=== PATIENT | female | born 1950 | race Caucasian/White ===

== ENCOUNTER → 2019-05-08 09:57 | Outpatient (CLI) | payer MEDICARE, OTHER, SELFPAY ==
--- NOTE | ~2019-05-08 | US_ITS ---
EXAMINATION: US breast LT limited HISTORY: Follow-up of benign left breast biopsy TECHNIQUE: Limited left breast ultrasound is performed. COMPARISON: 09/22/2018, 03/24/2018 FINDINGS: There is a stable 5 mm x 3 mm oval, circumscribed, parallel, hypoechoic mass with no nuclear radiation engineer ior features or internal vascularity at the 7:00 location 3 cm from the nipple. No additional sonogra phically detected masses identified. IMPRESSION: Given 12 months of sonographic stability, recommend follow-up targeted left breast ultrasound in 12 m [facility]. BI-RADS category 3, probably benign findings. Reviewed, dictated and finalized at location A. UNTS PAYABLE TECHNICIAN IMPRESSION: Given 12 months of sonographic stability, recommend follow-up targeted left nahomy ast ultrasound in 12 months. BI-RADS category 3, probably benign findings.
== END ==
PROVIDERS: PCP Internal Medicine; Visit Provider Obstetrics & Gynecology Gynecology
DX: R92.8 Other abnormal and inconclusive findings on diagnostic imaging of breast (principal)
CPT/HCPCS: 76642

== ENCOUNTER → 2019-11-30 10:59 | Outpatient (CLI) | payer MEDICARE, SELFPAY ==
--- NOTE | ~2019-11-30 | MM_ITS ---
EXAMINATION: MM screening [facility] BI w debra HISTORY: Screening mammogram TECHNIQUE: Craniocaudal and mediolateral oblique 3-D tomosynthesis images were obtained and synthetic 2-D images were generated. CAD analysis was submitted and interpreted. COMPARISON: 09/22/2018, 03/24/2018, 03/17/2018, 03/15/2017 BREAST PARENCHYMAL COMPOSITION: There are scattered areas of fibroglandular density. FINDINGS: A stable mass is present in the subareolar aspect of the left breast, considered benign giv en lack of interval change. The mammogram is also stable in the area of the interval left breast biop sy. There is no evidence of suspicious mass, calcification, or architectural distortion to suggest ma lignancy in either breast. There has been no suspicious interval change. IMPRESSION: 1. No mammographic evidence of malignancy. 2. Recommend routine screening mammography in one year. Of note, patient is due for charted left yaa st ultrasound in May 2020. BI-RADS Category 2: Benign finding(s). Reviewed, dictated and finalized at location A. IMPRESSION: 1. No mammographic evidence of malignancy. 2. Recommend routine screening mammography in one year. Of note, patient is due for charted left breast ultrasound in May 2020. BI-RADS Category 2: Benign finding(s).
== END ==
PROVIDERS: Visit Provider Obstetrics & Gynecology Gynecology
DX: Z12.31 Encounter for screening mammogram for malignant neoplasm of breast (principal)
CPT/HCPCS: 77063; 77067

== ENCOUNTER → 2020-08-19 09:44 | Outpatient (CLI) | payer MEDICARE, SELFPAY ==
--- NOTE | ~2020-08-19 | US_ITS ---
US breast LT limited 08/19/2020 10:07 Indication: Follow-up left breast mass Procedure: High-resolution ultrasound of the left breast Comparison: No prior studies for comparison. Findings: At 6:00, 4.5 cm from the nipple, there is an oval hypoechoic mass in measuring 6 mm with po sterior acoustic enhancement and no internal vascularity. There is parallel orientation with circumsc ribed margins. This likely corresponds to the mass seen on prior ultrasound at 7:00, 3 cm from the ni pple, allowing for differences of technique. Impression: 1: Stable probable benign left breast mass at 6:00, 4.5 cm from the nipple allowing for differences o f technique. BI-RADS CATEGORY 3-PROBABLY BENIGN FINDING RECOMMENDATION: Six-month follow-up bilateral screening mammogram and targeted left breast ultrasound recommended. Reviewed, dictated and finalized at location A. Impression: 1: Stable probable benign left breast mass at 6:00, 4.5 cm from the nipple allo wing for differences of technique. BI-RADS CATEGORY 3-PROBABLY BENIGN FINDING RECOMMENDATION: Six-month follow-up bilateral screening mammogram and targeted left breast ultrasound recommended.
== END ==
PROVIDERS: PCP Internal Medicine; Visit Provider Obstetrics & Gynecology Gynecology
DX: N63.25 Unspecified lump in the left breast, overlapping quadrants (principal)
CPT/HCPCS: 76642

== ENCOUNTER → 2020-12-02 13:15 | Outpatient (CLI) | payer MEDICARE, SELFPAY ==
--- NOTE | ~2020-12-02 | MM_ITS ---
EXAMINATION: MM screening jacques BI w debra HISTORY: Screening TECHNIQUE: Craniocaudal and mediolateral oblique 3-D tomosynthesis images were obtained and synthetic 2-D images were generated. CAD analysis was submitted and interpreted. COMPARISON: Comparison to multiple prior studies sequentially, with oldest reviewed study dated 03/05. BREAST PARENCHYMAL COMPOSITION: There are scattered areas of fibroglandular density. FINDINGS: Decreasing size of benign-appearing subareolar left breast mass. There is no evidence of bee spicious mass, calcification, or architectural distortion to suggest malignancy in either breast. The re has been no suspicious interval change. IMPRESSION: 1. No mammographic evidence of malignancy. 2. Recommend routine screening mammography in one year. BI-RADS Category 2: Benign finding(s). Reviewed, dictated and finalized at location A.
== END ==
PROVIDERS: PCP Internal Medicine; Visit Provider Obstetrics & Gynecology Gynecology
DX: Z12.31 Encounter for screening mammogram for malignant neoplasm of breast (principal)
CPT/HCPCS: 77063; 77067

== ENCOUNTER → 2021-01-07 12:16 | Outpatient (CLI) | payer MEDICARE, SELFPAY ==
--- NOTE | ~2021-01-07 | DEXA_ITS ---
Bone Density Report Name: Samara Noriega Age: 70 Sex: Female Ethnicity: White Date of : 1950 Indication: postmenopausal; screening for osteoporosis; parental hip fracture; hysterectomy; Referring Provider: ALEXUS BARRIOS Study: Bone densitometry was performed. Exam Date: January 07, 2021 Accession number: [id number] Bone Density: Region BMD T-score Z-score Classification AP Spine (L1-L4) 0.930 -1.1 1.1 Osteopenia Femoral Neck (Left) 0.649 -1.8 0.1 Osteopenia Total Hip (Left) 0.865 -0.6 1.0 Normal Femoral Neck (Right) 0.641 -1.9 0.0 Osteopenia Total Hip (Right) 0.808 -1.1 0.5 Osteopenia Total Hip Mean 0.837 -0.9 0.8 Normal World Health Organization criteria for BMD impression classify patients as: Normal (T-score at or above -1.0), Osteopenia (T-score between -1.0 and -2.5), or Osteoporosis (T-score at or below -2.5). 10-year Fracture Risk(1): Major Osteoporotic Fracture 18% Hip Fracture 5.5% Reported Risk Factors: [place] (), Neck BMD=0.641, BMI=28.9, parental fracture (1) FRAX(R) Version 3.08. Fracture probability calculated for an untreated patient. Fracture probability may be lower if the patient has received treatment. Previous Exams: Region Exam Age BMD T-score BMD Change BMD Change Date g/cm2 vs Baseline vs Previous AP Spine(L1-L4) 01/07/2021 70 0.930 -1.1 0.046* -0.046* 03/15/2017 66 0.976 -0.6 0.093* 0.008 03/05/2014 63 0.969 -0.7 0.085* 0.069* 03/01/2012 61 0.900 -1.3 0.016 0.004 02/21/2010 59 0.896 -1.4 0.012 0.003 02/08/2008 57 0.893 -1.4 0.009 0.009 11/19/2004 54 0.884 -1.5 Total Hip(Left) 01/07/2021 70 0.865 -0.6 -0.049* -0.083* 03/15/2017 66 0.948 0.0 0.034* 0.008 03/05/2014 63 0.940 0.0 0.026 0.044* 03/01/2012 61 0.897 -0.4 -0.018 0.005 02/21/2010 59 0.892 -0.4 -0.023 -0.032* 02/08/2008 57 0.924 -0.1 0.009 0.009 11/19/2004 54 0.914 -0.2 Total Hip(Right) 01/07/2021 70 0.808 -1.1 0.014 -0.041* 03/15/2017 66 0.848 -0.8 0.055* 0.012 03/05/2014 63 0.836 -0.9 0.043* 0.020 03/01/2012 61 0.816 -1.0 0.022 0.004 02/21/2010 59 0.812 -1.1 0.018 0.000 02/08/2008 57 0.812 -1.1 0.018 0.018 11/19/2004 54 0.794 -1.2
== END ==
PROVIDERS: PCP Internal Medicine; Visit Provider Obstetrics & Gynecology Gynecology
DX: Z78.0 Asymptomatic menopausal state (principal); M85.88 Other specified disorders of bone density and structure, other site; M85.851 Other specified disorders of bone density and structure, right thigh; M85.852 Other specified disorders of bone density and structure, left thigh
CPT/HCPCS: 77080

== ENCOUNTER → 2021-02-20 09:19 | Outpatient (CLI) | payer MEDICARE, SELFPAY ==
--- NOTE | ~2021-02-20 | US_ITS ---
US breast LT limited DATE: 02/20/2021 09:44 INDICATION: Six-month follow-up of probably benign left breast mass at 6:00 4.5 cm from nipple TECHNIQUE: Real-time imaging targeted at 6:00 4.5 cm from the nipple COMPARISON: left breast ultrasound 12/02/2020 screening FINDINGS: There is a benign parallel circumscribed hypoechoic solid lesion without posterior shadowin g at 6:00 4.5 cm from nipple, not significant change since 08/19/2020. IMPRESSION: BI-RADS Category 2: Benign Recommendation: Routine mammographic screening Reviewed, dictated and finalized at Location A. Reviewed, dictated and finalized at location A. SANDER
== END ==
PROVIDERS: PCP Internal Medicine; Visit Provider Obstetrics & Gynecology Gynecology
DX: N63.25 Unspecified lump in the left breast, overlapping quadrants (principal)
CPT/HCPCS: 76642

== ENCOUNTER → 2021-12-22 10:47 | Outpatient (CLI) | payer MEDICARE, SELFPAY ==
--- NOTE | ~2021-12-22 | MM_ITS ---
EXAMINATION: MM screening [facility] BI w debra HISTORY: Screening mammogram TECHNIQUE: Craniocaudal and mediolateral oblique 3-D tomosynthesis images were obtained and synthetic 2-D images were generated. CAD analysis was submitted and interpreted. COMPARISON: 12/02/2020, 11/30/2019, 09/22/2018 BREAST PARENCHYMAL COMPOSITION: There are scattered areas of fibroglandular density. FINDINGS: There is no suspicious mass, calcification, or architectural distortion to suggest malignan cy in either breast. There has been no suspicious interval change. IMPRESSION: 1. No mammographic evidence of malignancy. 2. Recommend routine screening mammography in one year. BI-RADS Category 1: Negative Reviewed, dictated and finalized at location A.
== END ==
PROVIDERS: PCP Internal Medicine; Visit Provider Obstetrics & Gynecology Gynecology
DX: Z12.31 Encounter for screening mammogram for malignant neoplasm of breast (principal)
CPT/HCPCS: 77063; 77067

== ENCOUNTER 2022-02-11 10:24 | Outpatient (CLI) | payer MEDICARE, SELFPAY ==
--- NOTE | 2022-02-11 10:42 | ECG_ITS ---
Measurements Intervals Wheeler Rate: 76 P: 55 HI: 189 QRS: -33 QRSD: 97 T: 69 QT: 383 QTc: 433 Interpretive Statements SINUS RHYTHM WITH SINUS ARRHYTHMIA LEFT AXIS DEVIATION LOW QRS VOLTAGE IN PRECORDIAL LEADS INCOMPLETE RIGHT BUNDLE BRANCH BLOCK LEFT VENTRICULAR HYPERTROPHY AND ST-T CHANGE BORDERLINE R WAVE PROGRESSION, ANTERIOR LEADS MINIMAL Q WAVES- HIGH LATERAL LEADS BORDERLINE ECG NO PREVIOUS ECG AVAILABLE FOR COMPARISON Electronically Signed On 02-11-2022 11:51:41 MACHINE JOINER CEMENTER by Chase Naik D.O.
[2022-02-11 11:47] LABS: Basophils Absolute Auto 0.1 K/mm3 (0.0-0.1); Basophils Percent Auto 0.6 % (0.2-1.2); Eosinophils Absolute Auto 0.1 K/mm3 (0-0.3); Hematocrit 44.1 % (37.0-47.0); Hemoglobin 14.4 g/dL (12.0-15.0); Immature Granulocyte Absolute 0.03 K/mm3 (0.00-0.031); Immature Granulocyte Percent A 0.4 % (0-0.5); Lymphocytes Absolute Auto 2.38 K/mm3 (0.9-3.2); Lymphocytes Percent Auto 28.7 % (18.3-44.2); Mean Corpuscular HGB Conc 32.7 g/dl (32-36); Mean Corpuscular Volume 88.7 fl (80-100); Mean Platelet Volume 10.1 fl (7.4-10.4); Monocytes Absolute Auto 0.6 K/mm3 (0.1-0.6); Monocytes Percent Auto 6.6 % (2.6-8.5); Neutrophils Absolute Auto 5.2 K/mm3 (1.3-6.7); Neutrophils Percent Auto 62.7 % (45.5-73.1); Platelet Count Result 277 k/mm3 (150-375); Red Blood Count 4.97 M/mm3 (4.2-5.4); Red Cell Distribution Width 13.8 % (11.5-14.5); White Blood Count 8.3 K/mm3 (4.5-10.0)
== END 2022-02-11 10:25 | disposition home or self-care (01) ==
PROVIDERS: PCP Internal Medicine; Visit Provider Nurse Practitioner Family
DX: M17.11 Unilateral primary osteoarthritis, right knee (principal); M25.562 Pain in left knee; I45.10 Unspecified right bundle-branch block
CPT/HCPCS: 36415; 85025; 93005

== ENCOUNTER 2022-03-05 12:08 | Outpatient (CLI) | payer MEDICARE, SELFPAY ==
[2022-03-05 15:11] LABS: Add Urine Microscopic? NO; Appearance Urine Clear (Clear); Bilirubin Urine Negative (Negative); Blood Urine Negative (Negative); Color Urine Yellow (Yellow); Glucose Urine UA Negative (Negative); Ketones Urine Negative (Negative); Leukocyte Esterase Ur Negative LEU/UL (Negative); Nitrate Urine Negative (Negative); Protein Urine Negative (Negative); Urobilinogen Urine 0.2 mg/dL (<2.0)
== END 2022-03-05 12:09 | disposition home or self-care (01) ==
PROVIDERS: PCP Internal Medicine; Visit Provider Nurse Practitioner Family
DX: G89.29 Other chronic pain (principal); M17.11 Unilateral primary osteoarthritis, right knee; M17.12 Unilateral primary osteoarthritis, left knee; M25.562 Pain in left knee; M25.561 Pain in right knee
CPT/HCPCS: 81003

== ENCOUNTER 2022-04-03 10:00 | Outpatient (CLI) | payer MEDICARE, SELFPAY ==
[2022-04-03 11:06] LABS: Basophils Percent Auto 0.5 % (0.2-1.2); Eosinophils Absolute Auto 0.1 K/mm3 (0-0.3); Eosinophils Percent Auto 1.2 % (0-4.4); Hematocrit 44.4 % (37.0-47.0); Hemoglobin 14.2 g/dL (12.0-15.0); Immature Granulocyte Absolute 0.03 K/mm3 (0.00-0.031); Immature Granulocyte Percent A 0.4 % (0-0.5); Mean Corpuscular Hemoglobin 29.6 pg (26-34); Mean Corpuscular Volume 92.5 fl (80-100); Mean Platelet Volume 10.3 fl (7.4-10.4); Monocytes Absolute Auto 0.4 K/mm3 (0.1-0.6); Monocytes Percent Auto 5.7 % (2.6-8.5); Neutrophils Absolute Auto 5.1 K/mm3 (1.3-6.7); Neutrophils Percent Auto 66.2 % (45.5-73.1); Platelet Count Result 250 k/mm3 (150-375); Red Cell Distribution Width 13.9 % (11.5-14.5); White Blood Count 7.7 K/mm3 (4.5-10.0)
[2022-04-03 11:09] LABS: Add Urine Microscopic? YES; Appearance Urine Clear (Clear); Bilirubin Urine Negative (Negative); Blood Urine Trace-Intact (Negative); Color Urine Yellow (Yellow); Glucose Urine UA Negative (Negative); Ketones Urine Negative (Negative); Leukocyte Esterase Ur 2+ LEU/UL (Negative); Nitrate Urine Negative (Negative); Protein Urine Trace mg/dL (Negative); Specific Grav Ur 1.025 (1.001-1.035); Urobilinogen Urine 0.2 mg/dL (<2.0); pH Urine 6.5 (5.0-9.0)
[2022-04-03 11:12] LABS: Mucus Urine Rare /lpf; Squamous Epithelial Cell Urine Many /hpf (Few); WBC Urine 31-50 /hpf
[2022-04-03 11:19] LABS: Prothrombin Time 12.5 Seconds (11.1-14.7)
[2022-04-03 11:20] LABS: Partial Thromboplastin Time 27.4 SECONDS (22.3-36.8)
[2022-04-03 11:25] LABS: Albumin Level 4.2 g/dL (3.5-5.1); Anion Gap 6 mmol/L (8-16); Blood Urea Nitrogen 21 mg/dL (7-17); Calcium 9.1 mg/dL (8.4-10.2); Carbon Dioxide 28 mmol/L (22-30); Chloride 109 mmol/L (98-107); Estimated Glomerular Filt Rate > 60; Glucose 99 mg/dL (65-110); Potassium 4.5 mmol/L (3.4-5.0); Sodium 143 mmol/L (137-145)
[2022-04-03 11:32] LABS: Urine Cotinine NEGATIVE
[2022-04-03 11:41] LABS: Hemoglobin A1C 6.3 % (<5.7)
== END 2022-04-03 10:01 | disposition home or self-care (01) ==
PROVIDERS: PCP Internal Medicine; Visit Provider Orthopaedic Surgery
DX: Z01.812 Encounter for preprocedural laboratory examination (principal); M17.11 Unilateral primary osteoarthritis, right knee
CPT/HCPCS: 80048; 80307; 81001; 82040; 83036; 85025; 85610; 85730; 86850; 86900; 86901; 87081; 87086

== ENCOUNTER 2022-04-14 01:16 | Day surgery (SDC) | payer MEDICARE, SELFPAY ==
--- NOTE | 2022-04-03 09:42 | PC.NURSE ---
PRE-OP INSTRUCTIONS, PLEASE READ CAREFULLY Report to the Outpatient Waiting Room, entrance under the green pavilion located off [facility], at time _0900_ on date _04/14/22_. Planned Procedure Time: _1100_. PACK A SMALL OVERNIGHT BAG AND LEAVE IN THE CAR ALONG WITH YOUR WALKER Time changes happen often and if your time is changed the preop area will call you the afternoon before. - You and your visitor will be asked to self-screen and do not enter if you have any COVID symptoms. - Only one visitor is requested with a max of two and NO children visitors are allowed at this time. - The patient visitor may be requested to leave or wait in car when not with patient due to distancing restrictions. - A mask is REQUIRED within the hospital. -VISITING HOURS 8AM-8PM Patients may have clear liquids (water, carbonated beverages, clear teas, apple juice) until 3 hours prior to surgery (0800 AM) with a maximum of 20 ounces. - No food from midnight until time of surgery Take the following medications with a SIP of water the morning of surgery: _NONE_ Medications to discontinue per physician __N/A__, Date to take last dose Please no make-up, nail malian, hairspray, perfume, deodorant, or body powder the day of surgery. No jewelry (including any body piercings) or valuables the day of surgery, leave them at home. Please take a shower or bath the night before, or the morning of, surgery with an antibacterial soap. Wear comfortable, loose fitting clothing. - Jewelry must be removed prior to entering the operating room. Rings and piercings that are not removed may be cut off. - The hospital will not accept responsibility for valuables. - Please leave all valuables, including medications, at home the day of surgery. If you are going home after surgery, a licensed motor vehicle escort driver must drive you home. - NO public transportation without another adult if you receive anesthesia. - We recommend that an adult stay with you for 24 hours following discharge. - We also recommend that you do not drive, make important decision, drink alcoholic beverages, or take any drugs that were not prescribed by your health care provider for at least 24 hours after your discharge time. Follow any additional instructions given to you from your surgeon. Wash the surgical extremity 3days leading up to surgery with HIBICLENS If you or anyone in your household have experienced Covid symptoms in the past week, please notify your surgeon or the nurse liaison at the phone number below for possible testing. Instructions given to _PATIENT_and asked if any additional questions and then verbalized understanding. Patient advised to call surgeon office or pre surgery nurse liaison [phone] if any additional questions.
[2022-04-03 10:14] VITALS: BP 160/74; PULSE 82; RESP 18; TEMP 36.8; O2SAT 99; BMI 30.9
--- NOTE | 2022-04-13 14:26 | WPDANESEPPF ---
Anes - Initial Pre Proc Eval Procedure: Operation Date: 04/14/22 08:30 Proposed Procedures p Right Total Knee Arthroplasty - Dony Barnhart MD Date/Time: 04/13/22 14:26 Surgeon: Dony Barnhart MD Pre Op Diagnosis: right knee djd Patient Data Age: 71 Gender: F Height: 1.6 m Weight: 79.2 kg Last Vital Signs Temp 36.8 C 04/03/22 10:14 Pulse 82 04/03/22 10:14 Resp 18 04/03/22 10:14 BP 160/74 H 04/03/22 10:14 Pulse Ox 99 04/03/22 10:14 O2 Del Method Room Air 04/03/22 10:14 Allergies Allergy/AdvReac Type Severity Reaction Status Date / Time No Known Allergies Allergy Verified 04/14/22 06:40 Home Medications Medication Instructions Recorded Confirmed Type atorvastatin 10 mg tablet 10 mg PO DAILY 09/30/20 04/14/22 History cholecalciferol (vitamin D3) 1,250 See Rx Instructions .Route .COMPLEX 09/30/20 04/14/22 History mcg (50,000 unit) tablet chlorhexidine gluconate 4 % 1 applic topical ONCE #237 mL 04/02/22 04/14/22 Rx topical liquid (Hibiclens) calcium carbonate 600 mg calcium 600 mg PO DAILY 04/03/22 04/14/22 History (1,500 mg) tablet (Calcium) Patient hx anesthesia problems: none Family hx anesthesia problems: none Results Review: All pre-operative results and documents have been reviewed as part of the pre-operative evaluation. ON LICENSE OF [facility] Past Medical History Medical History (Updated 04/13/22 @ 14:27 by Pro Molina DO) Bilateral knee pain Hyperlipidemia Knee joint effusion Left knee DJD MVP (mitral valve prolapse) Right knee DJD Wears glasses Surgical History Surgical History History of hysterectomy 2013, Dr. Luz Marina Joyce History of surgery Lipoma removal 2007 Family History Family History Other Arthritis High cholesterol Hypertension Social History Social History Smoking status: Never smoker Second hand tobacco smoke exposure: No Additional smoking assessment comments: PT DENIES ALL FORMS OF TOBACCO USE Alcohol intake: never Substance use: never Substance use type: does not use Living arrangements: with family Additional living arrangements comments: LIVES WITH SON DESEAN Gender identity (if verbalized by the patient): Female Spiritual care concerns: No Anes - Eval Final PreProcedure Day of Procedure 04/13/22 14:26 Patient weight: obese Heart: regular rate and rhythm Lungs: clear to auscultation Airway: Mallampati scale class II Neurological: alert and oriented Last oral intake: >/= 8 hours ASA classification: II Emergent: no Anesthetic plan: proceed Anesthesia type and monitoring: general LMA and standard monitoring Results Review: All pre-operative results and documents have been reviewed as part of the pre-operative evaluation. Informed Consent: The patient's anesthetic plan and its attendant risks and benefits were discussed with the patient/family/POA. Questions were solicited and answers provided to the satisfaction of the patient/family/POA.
[2022-04-14] VITALS (15 sets, daily range): BP systolic 115–169; BP diastolic 54–80; PULSE 80–107; RESP 12–18; TEMP 36.1–37.7; O2SAT 93–100; BMI 30.4
--- NOTE | ~2022-04-14 | XR_ITS ---
EXAMINATION: XR knee RT 2V DATE: 04/14/2022 11:32 INDICATION: Postoperative evaluation following right total knee arthroplasty. TECHNIQUE: Anteroposterior and lateral views of the right knee were obtained. COMPARISON: 11/03/2021 FINDINGS: Right total knee arthroplasty with patellar resurfacing appears well seated and in near anatomic alig nment. No fractures identified. Skin ember and expected postoperative subcutaneous and intramedull irene and intra-articular gas. IMPRESSION: 1. Right total knee arthroplasty, negative for postoperative purposes. Reviewed, dictated and finalized at location A. AIN TABLE CLERK
[2022-04-14] MEDS: ACETAMINOPHEN 500 MG TABLET 1000 MG PO (06:45)
[2022-04-14] MEDS: LACTATED RINGERS 1,000 ML 30 ML IV CONT ×2 (07:12→11:07)
[2022-04-14] MEDS: TRANEXAMIC ACID 1,000MG/ISO100 1,000 MG/100 ML BAG 200 MG IVPB (07:55)
--- NOTE | 2022-04-14 08:33 | WPDHPUPDATE1 ---
History and Physical Update Update Date/Time: 04/14/22 08:33 History and Physical has been reviewed, including an updated exam of the patient. There are NO changes in the patient's condition. Risks, benefits, and alternatives have been discussed and questions answered. Patient agrees to proceed with procedure.
--- NOTE | 2022-04-14 08:42 | WPDANESPNB ---
Anes - Peripheral Nerve Block Date/Time: 04/14/22 08:42 I have discussed with the patient/family/POA the placement of a peripheral nerve block for post-operative pain management, including associated risks, benefits, complications, and side effects. Alternative methods of post-operative analgesia were detailed. Questions were solicited and answers provided to the satisfaction of the patient/family/POA. Time-Out: A pre-procedural Time-Out was completed immediately before starting the procedure and confirmed: Patient Identification, Site, Procedure, Patient Position and the Availability of Requisite Equipment. Clinical Indications: Acute post-operative pain management requested by the operative surgeon. Nerve Block Insertion Note Anes-nerve block: adductor canal right Patient position: supine Skin prep: chlorhexidine Needle: 22 gauge, stimulating, insulated echogenic needle. Needle length: 80 mm Technique: ultrasound Injectate: bupivacaine 0.5% with epi 5 mcg/ml (30cc - no epi) Observations: tolerated well Complications: none Procedure start time:: 834 Procedure end time:: 837
[2022-04-14] MEDS: ceFAZolin 2 GM/D5W 50 ML 2 GM/50 ML BAG IVPB ×2 (08:44→16:02)
[2022-04-14] MEDS: TRANEXAMIC ACID 1,000 MG/10 ML AMPUL 1000 MG IV PUSH (10:05)
[2022-04-14] MEDS: HALOPERIDOL LACTATE 5 MG/ML VIAL 1 MG IV PUSH (11:10)
[2022-04-14] MEDS: ONDANSETRON INJ 4 MG/2 ML VIAL IV PUSH (11:26)
--- NOTE | 2022-04-14 11:29 | W.PM.PROC2 ---
Procedure Note - Detailed Date of Procedure 04/14/22 Pre-op Diagnosis right knee djd Post-op Diagnosis Same Procedure Performed R TKA Surgeon Dony Barnhart MD Anesthesia General Description of Procedure THE RIGHT KNEE WAS PREPPED AND DRAPED IN THE STERILE FASHION. THERE WAS A 10 DEGREE FLEXION CONTRACTURE. A MIDLINE SKIN INCISION WAS MADE. A MEDIAL PARAPATELLAR ARTHROTOMY WAS MADE. THE PATELLA WAS EVERTED. THERE WAS TRICOMPARTMENT DJD. THERE WAS MINIMAL PATELLA DJD. AN INTRAMEDULLARY JUAN WAS PLACED IN THE FEMUR. A DISTAL FEMORAL CUT WAS MADE IN 5 DEGREES OF VALGUS REMOVING APPROXIMATELY 10 MM OF BONE FROM THE DISTAL FEMUR. THE FEMUR WAS SIZED TO 62.5. A 62.5 FEMORAL CUTTING BLOCK WAS PLACED IN 3 DEGREES OF EXTERNAL ROTATION AND IN ALIGNMENT WITH LYNDSAY'S LINE AND THE TRANSEPICONDYLAR AXIS. ANTERIOR POSTERIOR AND CHAMFER CUTS WERE MADE. THE CUTS WERE EXCELLENT. NEXT AN INTRAMEDULLARY CUTTING GUIDE WAS PLACED IN THE TIBIA. A TRANS TIBIAL CUT WAS MADE ALONG THE LONG AXIS OF THE TIBIA. APPROXIMATELY 10 MM OF BONE WAS REMOVED FROM THE HIGH SIDE OF THE TIBIA. THE TIBIA WAS THEN PLANED TO A SMOOTH SURFACE. POSTERIOR FEMORAL OSTEOPHYTES WERE REMOVED FROM THE FEMORAL CONDYLES. A 71 TIBIAL TRIAL WAS PLACED IN ALIGNMENT WITH THE 1/3 MEDIAL ASPECT OF THE TIBIAL TUBERCLE. THEN A 62.5 FEMORAL TRIAL COMPONENT WAS PLACED. BOTH HAD EXCELLENT FITS. EVENTUALLY A 14 POLYETHYLENE TRIAL COMPONENT WAS PLACED. THE KNEE WAS TAKEN THROUGH A RANGE OF MOTION. THE KNEE CAME OUT TO FULL EXTENSION. THERE WAS NO ABNORMAL TILT TO THE PATELLA. THERE WAS GOOD A/P AND VARUS/VALGUS STABILITY. THERE WAS NO EXCESSIVE ROLL BACK WITH FLEXION. THE TRIAL COMPONENTS WERE REMOVED. THEN A 62.5 FEMORAL COMPONENT AND 71 TIBIAL COMPONENT WITH A 14 POLYETHYLENE COMPONENT WERE CEMENTED INTO PLACE. ONCE THE CEMENT WAS HARD THE KNEE WAS TAKEN THROUGH A ROM AGAIN AND FOUND TO BE STABLE WITH NO PATELLA TILT NO EXCESSIVE ROLL BACK WITH FLEXION AND GOOD STABILITY WITH COMPLETE AND FULL EXTENSION. THE KNEE WAS IRRIGATED WITH STERILE BETADINE AND WATER FOR ABOUT 3 MINUTES. THE BLEEDERS WERE CAUTERIZED. THE ARTHROTOMY WAS REPAIRED WITH NUMBER 1 VICRYL. THE SUB CUTANEOUS LAYER WITH 2-0 VICRYL AND THE SKIN WITH JONATHAN. THE WOUND WAS WASHED AND A STERILE DRESSING WAS APPLIED. PATIENT WAS EXTUBATED. Estimated Blood Loss -100.0 Pathology None sent Complications No immediate complications Condition Stable Disposition PACU
--- NOTE | 2022-04-14 11:34 | SUR.PHASEI ---
Notified Dr. Trujillo of patient have nausea with dry heaving. Patient has received zofran 4mg and 1mg of haldol in PACU. No new orders at this time.
[2022-04-14] MEDS: fentaNYL CITRATE INJ (*CRX) 100 MCG/2 ML VIAL 25 MCG IV PUSH ×4 (11:43→12:27)
[2022-04-14] MEDS: KCL 20 MEQ/D5/0.9% SOD CHL 1,000 ML 125 ML IV CONT (13:22)
--- NOTE | 2022-04-14 13:26 | PCPTNOTE ---
Attempted PT evaluation, pt refused due to fatigue/nausea. Pt request therapist return at later time. RN aware. Will follow
--- NOTE | 2022-04-14 13:54 | PC.NURSE ---
1340 patient was offered pain medication for mild pain but patient declined at this time. 1357 PT in room working with patient.
--- NOTE | 2022-04-14 14:29 | PC.NURSE ---
1415 son, Harshad at bedside and brought patient's walker and overnight bag.
--- NOTE | 2022-04-14 15:25 | PC.NURSE ---
around 1515 dangling at side of bed and doing exercises with PT
[2022-04-14] MEDS: CELECOXIB 200 MG CAPSULE PO (16:01)
[2022-04-14] MEDS: SENNA/DOCUSATE SODIUM TABLET 2 TAB PO (16:12)
--- NOTE | 2022-04-14 19:06 | PC.NURSE ---
Report given to oncoming HONORIO Herr.
--- NOTE | 2022-04-14 19:19 | PC.NURSE ---
Bedside shift change done with HONORIO Herr.
--- NOTE | 2022-04-14 19:19 | ADMGEN ---
Addendum entered by Yesi Deng RN 04/14/22 19:20: Patient was admitted around 1323 Original Note: This patient, Samara Noriega, was admitted to Virtual Bed Surgery- in PACU room 9. Patient/family oriented to hospital policies and general routines including ID bracelet, bed and alarms, visiting hours, pain management, procedures, bathroom and other care routines, personal items, smoking policy, room service/diet, and visiting hours. Information on how to activate the Rapid Response Team has been discussed. Patient/Family are encouraged to report perceived risks to care and to ask questions if they do not understand what they are told or what they should do.
[2022-04-14] MEDS: ASPIRIN 325 MG ENTERIC TABLET PO (21:50)
[2022-04-14] MEDS: FAMOTIDINE 20 MG TABLET PO (21:50)
[2022-04-14] MEDS: oxyCODONE/ACETAMINOPHEN (*CRX) 5-325 MG TABLET 1 TABLET PO (21:50)
[2022-04-15] MEDS: ceFAZolin 2 GM/D5W 50 ML 2 GM/50 ML BAG IVPB ×2 (00:22→07:31)
[2022-04-15 05:43] VITALS: BP 131/51; PULSE 89; RESP 18; TEMP 36.6; O2SAT 100
[2022-04-15 05:47] LABS: Basophils Percent Auto 0.1 % (0.2-1.2); Hematocrit 37.6 % (37.0-47.0); Immature Granulocyte Absolute 0.06 K/mm3 (0.00-0.031); Immature Granulocyte Percent A 0.4 % (0-0.5); Lymphocytes Absolute Auto 2.28 K/mm3 (0.9-3.2); Lymphocytes Percent Auto 15.1 % (18.3-44.2); Mean Corpuscular HGB Conc 31.9 g/dl (32-36); Mean Corpuscular Hemoglobin 29.8 pg (26-34); Mean Corpuscular Volume 93.3 fl (80-100); Mean Platelet Volume 9.4 fl (7.4-10.4); Monocytes Absolute Auto 1.2 K/mm3 (0.1-0.6); Monocytes Percent Auto 7.6 % (2.6-8.5); Neutrophils Absolute Auto 11.6 K/mm3 (1.3-6.7); Neutrophils Percent Auto 76.8 % (45.5-73.1); Platelet Count Result 311 k/mm3 (150-375); Red Blood Count 4.03 M/mm3 (4.2-5.4); Red Cell Distribution Width 14.1 % (11.5-14.5); White Blood Count 15.1 K/mm3 (4.5-10.0)
[2022-04-15 05:56] LABS: Anion Gap 6 mmol/L (8-16); Blood Urea Nitrogen 17 mg/dL (7-17); Calcium 8.2 mg/dL (8.4-10.2); Carbon Dioxide 25 mmol/L (22-30); Chloride 104 mmol/L (98-107); Estimated CRCL calculation 55 ml/min; Estimated Glomerular Filt Rate > 60; Glucose 113 mg/dL (65-110); Potassium 4.3 mmol/L (3.4-5.0); Sodium 135 mmol/L (137-145)
[2022-04-15] MEDS: CELECOXIB 200 MG CAPSULE PO (08:18)
[2022-04-15] MEDS: polyethylene glycoL 3350 17 GM POWD.PACK PO (08:19)
[2022-04-15] MEDS: ASPIRIN 325 MG ENTERIC TABLET PO (08:19)
[2022-04-15] MEDS: CALCIUM CARBONATE (OSCAL) 500 MG TABLET PO (08:19)
[2022-04-15] MEDS: ATORVASTATIN 10 MG TABLET PO (08:19)
[2022-04-15] MEDS: FAMOTIDINE 20 MG TABLET PO (08:19)
[2022-04-15 10:30] VITALS: BP 133/52; PULSE 92; RESP 18; TEMP 37.1; O2SAT 99
--- NOTE | 2022-04-15 10:36 | PC.NURSE ---
1032 Dr. Fritz at bedside discussing discharge plans for patient. Patient's questions answered.
--- NOTE | 2022-04-15 10:39 | PM.PNORT ---
Progress Note: A&P Assessment and Plan (1) Right knee DJD: Qualifiers: Osteoarthritis type: primary Qualified Code(s): M17.11 - Unilateral primary osteoarthritis, right knee Code(s): M17.11 - Unilateral primary osteoarthritis, right knee Status: Acute Assessment and Plan: POD 1 DOING WELL. OK TO DC HOME. SHE WILL F/U IN 3 WEEKS Subjective Subjective Date/Time Seen: 04/15/22 10:39 POD 1 DOING WELL. NO CALF PAIN Exam Extrem: Other: VSS AFEBRILE DRESSING DRY NV INTACT NEG HOMANS SIGN CALF SOFT NON TENDER Objective Data Vital Signs Vital Signs: Vital Signs - 24 hr 04/14/22 11:07 04/14/22 11:20 04/14/22 11:35 Temperature 37.7 C H Pulse Rate 99 99 97 Respiratory Rate 15 18 14 Blood Pressure 153/80 H 152/71 H 150/79 H Pulse Oximetry 97 94 97 Oxygen Delivery Simple Face Mask Room Air Room Air Oxygen Flow Rate 6 04/14/22 11:50 04/14/22 12:05 04/14/22 12:20 Temperature Pulse Rate 99 107 H 98 Respiratory Rate 12 16 14 Blood Pressure 154/74 H 160/76 H 155/66 H Pulse Oximetry 93 97 99 Oxygen Delivery Room Air Room Air Room Air Oxygen Flow Rate 04/14/22 12:35 04/14/22 12:50 04/14/22 13:11 Temperature 36.5 C Pulse Rate 95 98 Respiratory Rate 12 16 Blood Pressure 156/72 H 169/72 H Pulse Oximetry 100 97 Oxygen Delivery Room Air Room Air Oxygen Flow Rate 04/14/22 13:05 04/14/22 14:35 04/14/22 15:42 Temperature 36.3 C L 36.6 C 36.3 C L Pulse Rate 101 H 100 103 H Respiratory Rate 17 16 18 Blood Pressure 158/62 H 115/76 143/61 H Pulse Oximetry 98 97 96 Oxygen Delivery Oxygen Flow Rate 04/14/22 13:35 04/14/22 13:52 04/14/22 19:40 Temperature 36.1 C L 36.3 C L Pulse Rate 102 H 95 Respiratory Rate 18 18 Blood Pressure 160/75 H 124/54 L Pulse Oximetry 99 97 Oxygen Delivery Room Air Oxygen Flow Rate 04/14/22 22:00 04/15/22 05:43 04/15/22 08:00 Temperature 36.7 C 36.6 C Pulse Rate 92 89 Respiratory Rate 18 18 Blood Pressure 135/54 L 131/51 L Pulse Oximetry 95 100 Oxygen Delivery Room Air Oxygen Flow Rate 04/15/22 10:30 Temperature 37.1 C Pulse Rate 92 Respiratory Rate 18 Blood Pressure 133/52 L Pulse Oximetry 99 Oxygen Delivery Oxygen Flow Rate Intake/Output Intake/Output: Intake & Output 04/12/22 04/13/22 04/14/22 04/15/22 23:59 23:59 23:59 23:59 Intake Total 1240 660 Balance 1240 660 Meds/Results Medications: Active Medications Generic Name Dose Route Start Last Admin Trade Name Freq PRN Reason Stop Dose Admin Acetaminophen 1,000 mg 04/14/22 12:37 Acetaminophen 500 Mg Tablet PO Q6H PRN Pain Rated 1-3 Aspirin 325 mg 04/14/22 21:00 04/15/22 08:19 Aspirin 325 Mg Enteric Tablet PO 325 mg Q12HR SUNNI Administration Atorvastatin Calcium 10 mg 04/15/22 09:00 04/15/22 08:19 Atorvastatin 10 Mg Tablet PO 10 mg DAILY SUNNI Administration Calcium Carbonate 500 mg 04/15/22 09:00 04/15/22 08:19 Calcium Carbonate (Oscal) 500 Mg Tablet PO 05/15/22 08:59 500 mg DAILY SUNNI Administration Celecoxib 200 mg 04/14/22 17:00 04/15/22 08:18 Celecoxib 200 Mg Capsule PO 200 mg BIDWM SUNNI Administration Diazepam 5 mg 04/14/22 12:37 Diazepam (*Crx) 5 Mg Tablet PO Q8H PRN Spasms Diphenhydramine HCl 25 mg 04/14/22 12:37 Diphenhydramine Hcl Inj 50 Mg/Ml Vial IV PUSH Q6H PRN Itching Ergocalciferol 50,000 units 04/19/22 09:00 Ergocalciferol 50,000 Units Capsule BY MOUTH 04/19/22 09:01 ONCE ONE Famotidine 20 mg 04/14/22 21:00 04/15/22 08:19 Famotidine 20 Mg Tablet PO 20 mg Q12HR SUNNI Administration Naloxone HCl 0.1 mg 04/14/22 12:37 Naloxone Hcl 0.4 Mg/Ml Vial IV PUSH Q2M PRN Opiate Reversal Ondansetron HCl 4 mg 01/10/23 12:37 Ondansetron Inj 4 Mg/2 Ml Vial IV PUSH Q4H PRN Nausea And Vomiting Oxycodone/Acetaminophen 1 tablet 04/14/22 12:37 04/14/22 21:5
--- NOTE | 2022-04-15 10:41 | PM.DS ---
DS: Admitting Diagnosis Discharge Date 04/15/22 Admitting Diagnosis RIGHT KNEE DJD DS: Discharge Diagnosis Discharge Diagnosis (1) Right knee DJD: Qualifiers: Osteoarthritis type: primary Qualified Code(s): M17.11 - Unilateral primary osteoarthritis, right knee Code(s): M17.11 - Unilateral primary osteoarthritis, right knee Status: Acute DS: Summary Hospital Course Reason for hospitalization: PATIENT WAS ADMITTED S/P TOTAL KNEE ARTHROPLASTY FOR POSTOPERATIVE MEDICAL MANAGEMENT, PAIN CONTROL AND MOBILIZATION WITH PHYSICAL AND OCCUPATIONAL THERAPY. THE PATIENT PROGRESSED WELL WITH PT/OT. LABS AND VITALS REMAINED STABLE AND PAIN WELL CONTROLLED. THE PATIENT HAS BEEN CLEARED TO BE DISCHARGED HOME. FOLLOW UP APPOINTMENT SCHEDULED. DISCHARGE INSTRUCTIONS DISCUSSED AT LENGTH WITH THE PATIENT. MEDICATIONS REVIEWED. Hospital Course: PATIENT WAS ADMITTED S/P TOTAL KNEE ARTHROPLASTY FOR POSTOPERATIVE MEDICAL MANAGEMENT, PAIN CONTROL AND MOBILIZATION WITH PHYSICAL AND OCCUPATIONAL THERAPY. THE PATIENT PROGRESSED WELL WITH PT/OT. LABS AND VITALS REMAINED STABLE AND PAIN WELL CONTROLLED. THE PATIENT HAS BEEN CLEARED TO BE DISCHARGED HOME. FOLLOW UP APPOINTMENT SCHEDULED. DISCHARGE INSTRUCTIONS DISCUSSED AT LENGTH WITH THE PATIENT. MEDICATIONS REVIEWED. Status at Discharge Cognitive/behavioral status at discharge: STABLE Time Spent with Patient Time attestation: Total time spent providing and/or coordinating discharge services: DS: Data Data Completed and Pending Labs on day of discharge: Labs from last 24 hours 04/15/22 04/15/22 05:19 05:19 WBC 15.1 H RBC 4.03 L Hgb 12.0 Hct 37.6 MCV 93.3 MCH 29.8 MCHC 31.9 L RDW 14.1 Plt Count 311 MPV 9.4 Immature Gran % (Auto) 0.4 Neut % (Auto) 76.8 H Lymph % (Auto) 15.1 L [place] % (Auto) 7.6 Eos % (Auto) 0.0 Baso % (Auto) 0.1 L Lymph # (Auto) 2.28 [place] # (Auto) 1.2 H Eos # (Auto) 0.0 Baso # (Auto) 0.0 Abs Immat Gran (auto) 0.06 H Absolute Neuts (auto) 11.6 H Absolute Nucleated RBC 0.0 Nucleated RBC % 0.0 Sodium 135 L Potassium 4.3 Chloride 104 Carbon Dioxide 25 Anion Gap 6 L BUN 17 Creatinine 0.80 Estim Creat Clear Calc 55 Estimated GFR > 60 Glucose 113 H Calcium 8.2 L Procedures/Treatments: R TKA Discharge Plan Discharge Patient Disposition: Home Health Service Discharge Instructions: Remember to use your incentive spirometer during your recovery to promote breathing. FANTASMA BARNHART M.D. [facility] [address] [place] [address] POST OPERATIVE DISCHARGE INSTRUCTIONS FOLLOWING TOTAL KNEE REPLACEMENT SURGERY ? Your dressing will be changed prior to your discharge. You will be sent home with one additional dressing to be changed on post op day 7 by the home health RN. Your ember will be removed on the 14th day after surgery and steri-strips will be placed. Please practice good hand hygiene and do not touch your incision in order to prevent infection. ? You may shower with your dressing but do not submerge in a bath tub. ? Do not drive or operate machinery until you are released by Dr. Barnhart. ? Do not walk without a walker for any reason until you are released by Dr. Barnhart. ? Continue to use your ice machine. Please use a towel or pillow case to protect your skin before applying your ice machine. ? Do NOT place a pillow under your knee. You may use a pillow from the calf down if needed. This will prevent a flexion contracture postoperatively. ? You may begin use of your CPM machine at home if you have been given one pre-operatively. DO NOT USE WHILE YOU ARE SLEEPING. ? Your first post op appointment was sent to you via mail preoperatively. If you have any questions or are unable to make your appointment, please contact our office for scheduling questions. ? Your medications have been
== END 2022-04-15 11:32 | disposition home health service (06) ==
LOC: ANHSURGERY 07:13 → ANHSUROVER 04-15 09:02
PROVIDERS: PCP Internal Medicine; Visit Provider Orthopaedic Surgery
PROC: (CPT 27447; principal; 2022-04-14 08:30)
DX: M17.11 Unilateral primary osteoarthritis, right knee (principal); G89.18 Other acute postprocedural pain; E78.5 Hyperlipidemia, unspecified; I34.1 Nonrheumatic mitral (valve) prolapse; E66.9 Obesity, unspecified; Z68.30 Body mass index [BMI] 30.0-30.9, adult
CPT/HCPCS: 27447; 64447; 36415; 73560; 80048; 85025; 97110; 97116; 97161; 97165; 97530; 97535; A9270; C1713; C1776; J0171; J0690; J1100; J1630; J1885; J2250; J2270; J2405; J2704; J2795; J3010; J3480; J7120

== ENCOUNTER 2022-04-24 14:21 | Outpatient (CLI) | payer MEDICARE, SELFPAY ==
--- NOTE | ~2022-04-24 | US_ITS ---
EXAMINATION: US venous doppler LE RT DATE: 04/24/2022 15:11 INDICATION: Postoperative right lower limb pain TECHNIQUE: Grayscale ultrasound images without and with compression and Doppler ultrasound images of the right lower extremity veins were obtained. COMPARISON: None. FINDINGS: The visualized portions of right common femoral vein, profunda (deep) femoral vein, femoral vein, pop liteal vein, peroneal trunk, gastrocnemius vein and greater saphenous vein outflow are patent. 6.3 x 2.2 x 4.8 cm hypoechoic lenticular likely complex fluid collection within the musculature at the righ t calf. No internal vascular flow or surrounding hyperemia on color Doppler. IMPRESSION: 1. No deep venous thrombosis in the right lower limb. 2. 6.3 x 2.2 x 4.8 cm complex lenticular fluid collection in one of the muscular compartments of the right calf most likely representing a postoperative hematoma. Differential would include abscess in t he appropriate clinical setting. There is no surrounding hyperemia to elevate concern. Reviewed, dictated and finalized at location A. RNOON BABYSITTER IMPRESSION: 1. No deep venous thrombosis in the right lower limb. 2. 6.3 x 2.2 x 4.8 cm complex lenticular fluid collection in one of the muscula r compartments of the right calf most likely representing a postoperative hemat omar. Differential would include abscess in the appropriate clinical setting. Th ere is no surrounding hyperemia to elevate concern.
== END 2022-04-24 14:22 | disposition home or self-care (01) ==
PROVIDERS: PCP Internal Medicine; Visit Provider Orthopaedic Surgery
DX: M79.661 Pain in right lower leg (principal)
CPT/HCPCS: 93971

== ENCOUNTER 2022-10-19 11:25 | Outpatient (CLI) | payer MEDICARE, SELFPAY ==
[2022-10-19 12:04] LABS: Basophils Percent Auto 0.6 % (0.2-1.2); Eosinophils Absolute Auto 0.1 K/mm3 (0-0.3); Eosinophils Percent Auto 1.5 % (0-4.4); Hematocrit 42.7 % (37.0-47.0); Hemoglobin 13.7 g/dL (12.0-15.0); Immature Granulocyte Absolute 0.03 K/mm3 (0.00-0.031); Immature Granulocyte Percent A 0.4 % (0-0.5); Lymphocytes Absolute Auto 2.01 K/mm3 (0.9-3.2); Mean Corpuscular HGB Conc 32.1 g/dl (32-36); Mean Corpuscular Hemoglobin 28.7 pg (26-34); Mean Corpuscular Volume 89.5 fl (80-100); Mean Platelet Volume 9.8 fl (7.4-10.4); Monocytes Absolute Auto 0.5 K/mm3 (0.1-0.6); Monocytes Percent Auto 7.4 % (2.6-8.5); Neutrophils Absolute Auto 4.5 K/mm3 (1.3-6.7); Neutrophils Percent Auto 62.1 % (45.5-73.1); Platelet Count Result 263 k/mm3 (150-375); Red Blood Count 4.77 M/mm3 (4.2-5.4); Red Cell Distribution Width 14.7 % (11.5-14.5); White Blood Count 7.2 K/mm3 (4.5-10.0)
--- NOTE | 2022-10-19 12:08 | ECG_ITS ---
Measurements Intervals [place] Rate: 84 P: 65 ME: 201 QRS: -27 QRSD: 89 T: 55 QT: 392 QTc: 466 Interpretive Statements SINUS RHYTHM POSSIBLE LEFT ATRIAL ENLARGEMENT INCOMPLETE RIGHT BUNDLE BRANCH BLOCK DELAYED PRECORDIAL R/S TRANSITION MINIMAL Q WAVES- HIGH LATERAL LEADS BORDERLINE ECG COMPARED TO ECG 02/11/2022 11:02:32 NO SIGNIFICANT CHANGES Electronically Signed On 10-19-2022 13:03:31 CDT by Chase Naik D.O.
[2022-10-19 12:16] LABS: Anion Gap 5 mmol/L (8-16); Blood Urea Nitrogen 17 mg/dL (7-17); Calcium 9.2 mg/dL (8.4-10.2); Carbon Dioxide 31 mmol/L (22-30); Chloride 106 mmol/L (98-107); Estimated Glomerular Filt Rate > 60; Glucose 101 mg/dL (65-110); Potassium 4.5 mmol/L (3.4-5.0); Sodium 142 mmol/L (137-145)
[2022-10-19 12:57] LABS: Appearance Urine Clear (Clear); Bacteria Urine None Seen /hpf; Bilirubin Urine Negative (Negative); Blood Urine Negative (Negative); Color Urine Yellow (Yellow); Glucose Urine UA Negative (Negative); Ketones Urine Negative (Negative); Leukocyte Esterase Ur 1+ LEU/UL (Negative); Mucus Urine Present /lpf; Need Manual Microscopic Reviewed; Nitrate Urine Negative (Negative); Non Pathogenic Casts 0-2; Protein Urine Negative (Negative); RBC Urine 0-2 /hpf (0-2); Specific Grav Ur 1.017 (1.001-1.035); Squamous Epithelial Cell Urine Occasional /hpf (Few); Urobilinogen Urine 0.2 mg/dL (<2.0); WBC Urine 0-5 /hpf; pH Urine 7.5 (5.0-9.0)
[2022-10-19 13:03] LABS: Add Urine Microscopic? YES
== END 2022-10-19 11:26 | disposition home or self-care (01) ==
PROVIDERS: PCP Orthopaedic Surgery; Visit Provider Orthopaedic Surgery
DX: M17.12 Unilateral primary osteoarthritis, left knee (principal); I10 Essential (primary) hypertension; I45.10 Unspecified right bundle-branch block
CPT/HCPCS: 36415; 80048; 81001; 85025; 93005

== ENCOUNTER 2022-12-08 10:01 | Outpatient (CLI) | payer MEDICARE, SELFPAY ==
[2022-12-08 11:17] LABS: Appearance Urine Clear (Clear); Basophils Percent Auto 0.4 % (0.2-1.2); Bilirubin Urine Negative (Negative); Blood Urine Negative (Negative); Color Urine Yellow (Yellow); Eosinophils Percent Auto 0.5 % (0-4.4); Glucose Urine UA Negative (Negative); Hematocrit 44.8 % (37.0-47.0); Hemoglobin 14.4 g/dL (12.0-15.0); Immature Granulocyte Absolute 0.02 K/mm3 (0.00-0.031); Immature Granulocyte Percent A 0.3 % (0-0.5); Ketones Urine Negative (Negative); Leukocyte Esterase Ur Negative LEU/UL (Negative); Lymphocytes Absolute Auto 1.78 K/mm3 (0.9-3.2); Lymphocytes Percent Auto 23.3 % (18.3-44.2); Mean Corpuscular HGB Conc 32.1 g/dl (32-36); Mean Corpuscular Hemoglobin 29.3 pg (26-34); Mean Corpuscular Volume 91.1 fl (80-100); Mean Platelet Volume 10.3 fl (7.4-10.4); Monocytes Absolute Auto 0.4 K/mm3 (0.1-0.6); Monocytes Percent Auto 5.6 % (2.6-8.5); Neutrophils Absolute Auto 5.3 K/mm3 (1.3-6.7); Neutrophils Percent Auto 69.9 % (45.5-73.1); Nitrate Urine Negative (Negative); Platelet Count Result 271 k/mm3 (150-375); Protein Urine Negative (Negative); Red Blood Count 4.92 M/mm3 (4.2-5.4); Red Cell Distribution Width 13.5 % (11.5-14.5); Specific Grav Ur 1.008 (1.001-1.035); Urobilinogen Urine 0.2 mg/dL (<2.0); White Blood Count 7.6 K/mm3 (4.5-10.0)
[2022-12-08 11:20] LABS: Albumin Level 4.3 g/dL (3.5-5.1); Anion Gap 8 mmol/L (8-16); Blood Urea Nitrogen 20 mg/dL (7-17); Calcium 9.5 mg/dL (8.4-10.2); Carbon Dioxide 29 mmol/L (22-30); Chloride 103 mmol/L (98-107); Estimated Glomerular Filt Rate > 60; Glucose 102 mg/dL (65-110); Potassium 4.8 mmol/L (3.4-5.0); Sodium 140 mmol/L (137-145)
[2022-12-08 11:21] LABS: INR 0.9; Prothrombin Time 12.2 Seconds (11.1-14.7)
[2022-12-08 11:22] LABS: Partial Thromboplastin Time 25.7 SECONDS (22.3-36.8)
[2022-12-08 11:24] LABS: Urine Cotinine NEGATIVE
[2022-12-08 11:36] LABS: Add Urine Microscopic? NO
[2022-12-08 11:52] LABS: Hemoglobin A1C 5.8 % (<5.7)
== END 2022-12-08 10:02 | disposition home or self-care (01) ==
LOC: ANHSURGERY 10:05
PROVIDERS: PCP Internal Medicine; Visit Provider Orthopaedic Surgery
DX: M17.12 Unilateral primary osteoarthritis, left knee (principal); Z01.818 Encounter for other preprocedural examination
CPT/HCPCS: 80048; 80307; 81003; 82040; 83036; 85025; 85610; 85730; 87081

== ENCOUNTER 2022-12-22 03:38 | Day surgery (SDC) | payer MEDICARE, SELFPAY ==
[2022-12-08 10:16] VITALS: BP 145/76; PULSE 80; RESP 16; TEMP 36.9; O2SAT 97; BMI 30.5
--- NOTE | 2022-12-08 10:26 | PC.NURSE ---
Report to the Outpatient Waiting Room, entrance under the green pavilion located off [facility], at time __6:00AM on date __12/22/22 . Planned Procedure Time: __7:30AM . Time changes happen often and if your time is changed the preop area will call you the afternoon before. - You and your visitor will be asked to self-screen and do not enter if you have any COVID symptoms. - A mask is optional within the hospital at this time. Patients may have clear liquids (water, carbonated beverages, clear teas, apple juice) until 3 hours prior to surgery with a maximum of 20 ounces. - No food from midnight until time of surgery Take the following medications with a SIP of water the morning of surgery: ____NONE DO NOT STOP ANY OF YOUR OTHER PRESCRIPTION MEDICATIONS PRIOR TO SURGERY ?EXCEPT THE FOLLOWING Medications to discontinue per physician __HOLD IBUPROFEN 7 DAYS - LAST DOSE 12/15/22 HOLD ALL VITAMINS/SUPPLEMENTS 7 DAYS PRE-OP- LAST DOSE 12/15/22 Please no make-up, nail jamaican, hairspray, perfume, deodorant, or body powder the day of surgery. No jewelry (including any body piercings) or valuables the day of surgery, leave them at home. Please take a shower or bath the night before, or the morning of, surgery with an antibacterial soap. Wear comfortable, loose fitting clothing. Children are encouraged to wear pajamas. - Jewelry must be removed prior to entering the operating room. Rings and piercings that are not removed may be cut off. - The hospital will not accept responsibility for valuables. - Please leave all valuables, including medications, at home the day of surgery. If you are going home after surgery, a licensed driver license reviewing officer must drive you home. - NO public transportation without another adult if you receive anesthesia. - We recommend that an adult stay with you for 24 hours following discharge. - We also recommend that you do not drive, make important decision, drink alcoholic beverages, or take any drugs that were not prescribed by your health care provider for at least 24 hours after your discharge time. Follow any additional instructions given to you from your surgeon. If you or anyone in your household have experienced Covid symptoms in the past week, please notify your surgeon or the nurse liaison at the phone number below for possible testing. Telephone instructions given to __PATIENT and asked if any additional questions and then verbalized understanding. Patient advised to call surgeon office or pre surgery nurse liaison [phone] if any additional questions.
[2022-12-22] VITALS (14 sets, daily range): BP systolic 125–160; BP diastolic 63–91; PULSE 60–99; RESP 10–20; TEMP 36.1–37; O2SAT 91–100
--- NOTE | ~2022-12-22 | XR_ITS ---
Left Knee Technique: Portable AP and crosstable lateral views Clinical History: Status post TKR Findings: Patient is status post total knee replacement. Orthopedic hardware alignment appears anatom ic. No hardware complication is evident. Subcutaneous emphysema and swelling is likely postoperative in nature. No acute osseous fracture is seen. Impression: Status post total knee replacement, without evidence of hardware complication. Reviewed, dictated and finalized at location . Impression: Status post total knee replacement, without evidence of hardware complication.
[2022-12-22] MEDS: LACTATED RINGERS 1,000 ML 30 ML IV CONT ×2 (06:49→10:09)
--- NOTE | 2022-12-22 06:54 | WPDANESEPPF ---
Anes - Initial Pre Proc Eval Procedure: Operation Date: 12/22/22 07:30 Proposed Procedures p Left Total Knee Arthroplasty - Dony Barnhart MD Date/Time: 12/22/22 06:54 Surgeon: Dony Barnhart MD Pre Op Diagnosis: Lt Knee DJD Patient Data Age: 72 Gender: F Height: 1.61 m Weight: 77.6 kg Last Vital Signs Temp 36.9 C 12/08/22 10:16 Pulse 80 12/08/22 10:16 Resp 16 12/08/22 10:16 BP 145/76 H 12/08/22 10:16 Pulse Ox 97 12/08/22 10:16 O2 Del Method Room Air 12/08/22 10:16 Allergies Allergy/AdvReac Type Severity Reaction Status Date / Time No Known Allergies Allergy Verified 12/22/22 06:44 Home Medications Medication Instructions Recorded Confirmed Type atorvastatin 10 mg tablet 10 mg PO DAILY 09/30/20 12/22/22 History cholecalciferol (vitamin D3) 1,250 See Rx Instructions .Route .COMPLEX 09/30/20 12/22/22 History mcg (50,000 unit) tablet calcium carbonate 600 mg calcium 600 mg PO DAILY 04/03/22 12/22/22 History (1,500 mg) tablet (Calcium) acetaminophen 500 mg tablet 1,000 mg PO Q6H PRN Pain 12/08/22 12/22/22 History ibuprofen 200 mg capsule 400 mg PO Q6H PRN Pain 12/08/22 12/22/22 History Patient hx anesthesia problems: none Family hx anesthesia problems: none Results Review: All pre-operative results and documents have been reviewed as part of the pre-operative evaluation. [facility] Past Medical History Medical History Bilateral knee pain Hyperlipidemia Knee joint effusion Left knee DJD MVP (mitral valve prolapse) Right knee DJD Wears glasses Surgical History Surgical History History of hysterectomy 2013, Dr. Luz Marina Joyce History of surgery Lipoma removal 2007 Status post total right knee replacement DOS 04/14/2022 Family History Family History Father Cancer CAD (coronary artery disease) Myocardial infarction Mother Arthritis High cholesterol Hypertension Mother Arthritis Social History Social History Smoking status: Never smoker Second hand tobacco smoke exposure: No Additional smoking assessment comments: PT DENIES ALL FORMS OF TOBACCO USE Alcohol intake: never Substance use: never Substance use type: does not use Lack of Transportation: No Lack of Food: Never True Current Housing: I Have Housing Concerned About Future Housing: No Difficulty Paying Gas/Electric Bills: No Difficulty Paying for Meds: No Currently Unemployed: No Education: High School Diploma/GED Difficulty w/ Childcare or Family Care: No Living arrangements: with family Additional living arrangements comments: MOTHER & SON Gender identity (if verbalized by the patient): Female Spiritual care concerns: No Anes - Eval Final PreProcedure Day of Procedure 12/22/22 06:54 Patient weight: obese Heart: regular rate and rhythm Lungs: clear to auscultation Airway: Mallampati scale class II Neurological: alert and oriented Last oral intake: >/= 8 hours ASA classification: II Emergent: no Anesthetic plan: proceed Anesthesia type and monitoring: general LMA and standard monitoring Results Review: All pre-operative results and documents have been reviewed as part of the pre-operative evaluation. Informed Consent: The patient's anesthetic plan and its attendant risks and benefits were discussed with the patient/family/POA. Questions were solicited and answers provided to the satisfaction of the patient/family/POA.
[2022-12-22] MEDS: TRANEXAMIC ACID 1,000MG/ISO100 1,000 MG/100 ML BAG 200 MG IVPB (07:06)
[2022-12-22] MEDS: ACETAMINOPHEN 500 MG TABLET 1000 MG PO (07:08)
--- NOTE | 2022-12-22 07:24 | WPDHPUPDATE1 ---
History and Physical Update Update Date/Time: 12/22/22 07:24 History and Physical has been reviewed, including an updated exam of the patient. There are NO changes in the patient's condition. Risks, benefits, and alternatives have been discussed and questions answered. Patient agrees to proceed with procedure.
--- NOTE | 2022-12-22 07:39 | WPDANESPNB ---
Anes - Peripheral Nerve Block Date/Time: 12/22/22 07:39 I have discussed with the patient/family/POA the placement of a peripheral nerve block for post-operative pain management, including associated risks, benefits, complications, and side effects. Alternative methods of post-operative analgesia were detailed. Questions were solicited and answers provided to the satisfaction of the patient/family/POA. Time-Out: A pre-procedural Time-Out was completed immediately before starting the procedure and confirmed: Patient Identification, Site, Procedure, Patient Position and the Availability of Requisite Equipment. Clinical Indications: Acute post-operative pain management requested by the operative surgeon. Nerve Block Insertion Note Anes-nerve block: femoral Patient position: supine Skin prep: chlorhexidine Needle: 22 gauge, stimulating, insulated echogenic needle. Needle length: 50 mm Technique: nerve stimulation lost at (mA) (0.35) Injectate: bupivacaine 0.5% with epi 5 mcg/ml (30cc no epi) Observations: tolerated well Complications: none Procedure start time:: 737 Procedure end time:: 741
[2022-12-22] MEDS: ceFAZolin 2 GM/D5W 50 ML 2 GM/50 ML BAG IVPB ×3 (07:40→21:16)
[2022-12-22] MEDS: ONDANSETRON INJ 4 MG/2 ML VIAL IV PUSH ×2 (10:20→14:16)
--- NOTE | 2022-12-22 10:20 | W.PM.PROC2 ---
Procedure Note - Detailed Date of Procedure 12/22/22 Pre-op Diagnosis Lt Knee DJD Post-op Diagnosis Same Procedure Performed L TKA Surgeon Dony Barnhart MD Anesthesia General Description of Procedure THE LEFT KNEE WAS PREPPED AND DRAPED IN THE STERILE FASHION. THERE WAS A 10 DEGREE FLEXION CONTRACTURE. A MIDLINE SKIN INCISION WAS MADE. A MEDIAL PARAPATELLAR ARTHROTOMY WAS MADE. THE PATELLA WAS EVERTED. AN INTRAMEDULLARY JUAN WAS PLACED IN THE FEMUR. A DISTAL FEMORAL CUT WAS MADE IN 5 DEGREES OF VALGUS REMOVING APPROXIMATELY 11 MM OF BONE FROM THE DISTAL FEMUR. THE FEMUR WAS SIZED TO 65. A 65 FEMORAL CUTTING BLOCK WAS PLACED IN 3 DEGREES OF EXTERNAL ROTATION AND IN ALIGNMENT WITH LYNDSAY'S LINE AND THE TRANSEPICONDYLAR AXIS. ANTERIOR POSTERIOR AND CHAMFER CUTS WERE MADE. THE CUTS WERE EXCELLENT. NEXT AN INTRAMEDULLARY CUTTING GUIDE WAS PLACED IN THE TIBIA. A TRANS TIBIAL CUT WAS MADE ALONG THE LONG AXIS OF THE TIBIA. APPROXIMATELY 10 MM OF BONE WAS REMOVED FROM THE HIGH SIDE OF THE TIBIA. THE TIBIA WAS THEN PLANED TO A SMOOTH SURFACE. POSTERIOR FEMORAL OSTEOPHYTES WERE REMOVED FROM THE FEMORAL CONDYLES. A 75 TIBIAL TRIAL WAS PLACED IN ALIGNMENT WITH THE 1/3 MEDIAL ASPECT OF THE TIBIAL TUBERCLE. THEN A 65 FEMORAL TRIAL COMPONENT WAS PLACED. BOTH HAD EXCELLENT FITS. EVENTUALLY A 12 MM POLYETHYLENE TRIAL COMPONENT WAS PLACED. THE KNEE WAS TAKEN THROUGH A RANGE OF MOTION. THE KNEE CAME OUT TO FULL EXTENSION. THERE WAS NO ABNORMAL TILT TO THE PATELLA. THERE WAS GOOD A/P AND VARUS/VALGUS STABILITY. THERE WAS NO EXCESSIVE ROLL BACK WITH FLEXION. THE TRIAL COMPONENTS WERE REMOVED. THEN A 65 FEMORAL COMPONENT AND 75 TIBIAL COMPONENT WITH A 12 POLYETHYLENE COMPONENT WERE CEMENTED INTO PLACE. ONCE THE CEMENT WAS HARD THE KNEE WAS TAKEN THROUGH A ROM AGAIN AND FOUND TO BE STABLE WITH NO PATELLA TILT NO EXCESSIVE ROLL BACK WITH FLEXION AND GOOD STABILITY WITH COMPLETE AND FULL EXTENSION. THE KNEE WAS IRRIGATED WITH STERILE BETADINE AND WATER FOR ABOUT 3 MINUTES. THE BLEEDERS WERE CAUTERIZED. THE ARTHROTOMY WAS REPAIRED WITH NUMBER 1 VICRYL. THE SUB CUTANEOUS LAYER WITH 2-0 VICRYL AND THE SKIN WITH JONATHAN. THE WOUND WAS WASHED AND A STERILE DRESSING WAS APPLIED. PATIENT WAS EXTUBATED. Estimated Blood Loss -150.0 Pathology None sent Complications No immediate complications Condition Stable Disposition PACU
[2022-12-22] MEDS: diphenhydrAMINE HCl INJ 50 MG/ML VIAL 25 MG IV PUSH (10:45)
[2022-12-22] MEDS: fentaNYL CITRATE INJ (*CRX) 100 MCG/2 ML VIAL 25 MCG IV PUSH ×4 (10:46→11:46)
--- NOTE | 2022-12-22 12:28 | PC.NURSE ---
This patient, Samara Noriega, was admitted to [facility] Surg Room 327-01. Patient/family oriented to hospital policies and general routines including ID bracelet, bed and alarms, visiting hours, pain management, procedures, bathroom and other care routines, personal items, smoking policy, room service/diet, and visiting hours. Information on how to activate the Rapid Response Team has been discussed. Patient/Family are encouraged to report perceived risks to care and to ask questions if they do not understand what they are told or what they should do.
--- NOTE | 2022-12-22 12:35 | PC.NURSE ---
Patient nauseous at this time. Waiting to give oral medications.
[2022-12-22] MEDS: SENNA/DOCUSATE SODIUM TABLET 2 TAB PO (16:30)
[2022-12-22] MEDS: ASPIRIN 325 MG ENTERIC TABLET PO (21:14)
[2022-12-22] MEDS: FAMOTIDINE 20 MG TABLET PO (21:15)
[2022-12-23] VITALS (8 sets, daily range): BP systolic 105–125; BP diastolic 49–57; PULSE 74–99; RESP 14–20; TEMP 35.9–37.9; O2SAT 96–99
[2022-12-23] MEDS: ceFAZolin 2 GM/D5W 50 ML 2 GM/50 ML BAG IVPB (06:06)
[2022-12-23] MEDS: oxyCODONE/ACETAMINOPHEN (*CRX) 5-325 MG TABLET 1 TABLET PO ×3 (06:36→21:32)
[2022-12-23 07:13] LABS: Basophils Percent Auto 0.2 % (0.2-1.2); Hematocrit 34.8 % (37.0-47.0); Hemoglobin 11.1 g/dL (12.0-15.0); Immature Granulocyte Absolute 0.07 K/mm3 (0.00-0.031); Immature Granulocyte Percent A 0.5 % (0-0.5); Lymphocytes Absolute Auto 2.01 K/mm3 (0.9-3.2); Lymphocytes Percent Auto 14.8 % (18.3-44.2); Mean Corpuscular HGB Conc 31.9 g/dl (32-36); Mean Corpuscular Hemoglobin 29.2 pg (26-34); Mean Corpuscular Volume 91.6 fl (80-100); Mean Platelet Volume 10.3 fl (7.4-10.4); Monocytes Absolute Auto 1.3 K/mm3 (0.1-0.6); Monocytes Percent Auto 9.2 % (2.6-8.5); Neutrophils Absolute Auto 10.2 K/mm3 (1.3-6.7); Neutrophils Percent Auto 75.3 % (45.5-73.1); Platelet Count Result 225 k/mm3 (150-375); Red Cell Distribution Width 13.7 % (11.5-14.5); White Blood Count 13.6 K/mm3 (4.5-10.0)
[2022-12-23 07:28] LABS: Anion Gap 8 mmol/L (8-16); Blood Urea Nitrogen 16 mg/dL (7-17); Calcium 8.4 mg/dL (8.4-10.2); Carbon Dioxide 24 mmol/L (22-30); Chloride 107 mmol/L (98-107); Estimated CRCL calculation 48 ml/min; Estimated Glomerular Filt Rate > 60; Glucose 121 mg/dL (65-110); Potassium 4.3 mmol/L (3.4-5.0); Sodium 139 mmol/L (137-145)
[2022-12-23] MEDS: polyethylene glycoL 3350 17 GM POWD.PACK PO (08:55)
[2022-12-23] MEDS: SENNA/DOCUSATE SODIUM TABLET 2 TAB PO ×2 (08:56→16:10)
[2022-12-23] MEDS: CALCIUM CARBONATE (OSCAL) 500 MG TABLET PO (08:57)
[2022-12-23] MEDS: ASPIRIN 325 MG ENTERIC TABLET PO ×2 (08:57→20:34)
[2022-12-23] MEDS: ATORVASTATIN 10 MG TABLET PO (08:57)
[2022-12-23] MEDS: FAMOTIDINE 20 MG TABLET PO ×2 (08:57→20:35)
--- NOTE | 2022-12-23 10:25 | WPDANESPN ---
Anes - Prog Note Post-Op Date/Time: 12/23/22 10:25 Cardiovascular status: normal Respiratory status: normal Airway patency: baseline Mental status: baseline Post-Op hydration status: normal Vital Signs: Last Vital Signs Temp 97.7 F 12/23/22 09:50 Pulse 79 12/23/22 09:50 Resp 14 12/23/22 09:50 BP 114/49 L 12/23/22 09:50 Pulse Ox 97 12/23/22 09:50 O2 Del Method Room Air 12/22/22 20:00 O2 Flow Rate 2 12/22/22 11:54 Pain Score (VAS): 3 I/O: Intake & Output 12/22/22 12/23/22 12/23/22 23:59 07:59 15:59 Intake Total 990 50 360 Balance 990 50 360 Laboratory Tests 12/23/22 07:03 12/23/22 07:03 12/23/22 07:03 WBC 13.6 H RBC 3.80 L Hgb 11.1 L D Hct 34.8 L MCV 91.6 MCH 29.2 MCHC 31.9 L RDW 13.7 Plt Count 225 MPV 10.3 Immature Gran % (Auto) 0.5 Neut % (Auto) 75.3 H Lymph % (Auto) 14.8 L [place] % (Auto) 9.2 H Eos % (Auto) 0.0 Baso % (Auto) 0.2 Lymph # (Auto) 2.01 [place] # (Auto) 1.3 H Eos # (Auto) 0.0 Baso # (Auto) 0.0 Abs Immat Gran (auto) 0.07 H Absolute Neuts (auto) 10.2 H Absolute Nucleated RBC 0.0 Nucleated RBC % 0.0 Sodium 139 Potassium 4.3 Chloride 107 Carbon Dioxide 24 Anion Gap 8 BUN 16 Creatinine 0.90 Estim Creat Clear Calc 48 Estimated GFR > 60 Glucose 121 H Calcium 8.4 Post-procedural complaints: none Patient Feedback: Patient satisfied with anesthetic care. pt states that peripheral nerve block starting to recede.
--- NOTE | 2022-12-23 13:52 | PM.PNORT ---
Progress Note: A&P Assessment and Plan (1) S/P total knee arthroplasty: Code(s): Z96.659 - Presence of unspecified artificial knee joint Status: Acute Plan POD 1WITH CONTINUED FEMORAL BLOCK. SHE WILL REQUIRE MORE PT PRIOR TO DC. SHE WILL BE REEVALUATED IN THE AM FOR PROGRESS. Subjective Subjective Date/Time Seen: 12/23/22 13:52 Interval history: POD 1 DOING WELL. SLOW PROGRESS WITH PT DUE TO FEMORAL BLOCK AND BUCKLING OF THE KNEE WITH WEIGHT BEARING. NO CALF PAIN. Exam Extrem: Other: VSS AFEBRILE DRESSING DRY NV INTACT NEG HOMANS SIGN, CALF AND THIGH NON TENDER Objective Data Vital Signs Vital Signs: Vital Signs - 24 hr 12/22/22 17:50 12/22/22 21:04 12/23/22 00:32 Temperature 36.6 C 36.4 C L 36.1 C L Pulse Rate 98 86 84 Respiratory Rate 14 20 20 Blood Pressure 136/65 125/63 105/55 L Pulse Oximetry 99 98 97 Oxygen Delivery 12/22/22 20:00 12/23/22 05:02 12/23/22 09:50 Temperature 35.9 C L 36.5 C Pulse Rate 95 79 Respiratory Rate 20 14 Blood Pressure 119/55 L 114/49 L Pulse Oximetry 96 97 Oxygen Delivery Room Air Intake/Output Intake/Output: Intake & Output 12/20/22 12/21/22 12/22/22 12/23/22 23:59 23:59 23:59 23:59 Intake Total 1740 530 Balance 1740 530 Meds/Results Medications: Active Medications Generic Name Dose Route Start Last Admin Trade Name Navneetq PRN Reason Stop Dose Admin Acetaminophen 1,000 mg 12/22/22 12:05 Acetaminophen 500 Mg Tablet PO Q6H PRN Pain Rated 1-3 Aspirin 325 mg 12/22/22 12:05 12/23/22 08:57 Aspirin 325 Mg Enteric Tablet PO 325 mg Q12HR SUNNI Administration Atorvastatin Calcium 10 mg 12/22/22 12:05 12/23/22 08:57 Atorvastatin 10 Mg Tablet PO 10 mg DAILY SUNNI Administration Calcium Carbonate 500 mg 12/22/22 12:05 12/23/22 08:57 Calcium Carbonate (Oscal) 500 Mg Tablet PO 01/21/23 12:04 500 mg DAILY SUNNI Administration Diazepam 5 mg 12/22/22 12:05 Diazepam (*Crx) 5 Mg Tablet PO Q8H PRN Spasms Diphenhydramine HCl 25 mg 12/22/22 12:05 Diphenhydramine Hcl Inj 50 Mg/Ml Vial IV PUSH Q6H PRN Itching Ergocalciferol 50,000 units 01/02/23 09:00 Ergocalciferol 50,000 Units Capsule BY MOUTH Q15D SUNNI Famotidine 20 mg 12/22/22 12:05 12/23/22 08:57 Famotidine 20 Mg Tablet PO 20 mg Q12HR SUNNI Administration Naloxone HCl 0.1 mg 12/22/22 12:05 Naloxone Hcl 0.4 Mg/Ml Vial IV PUSH Q2M PRN Opiate Reversal Ondansetron HCl 4 mg 12/22/22 12:05 12/22/22 14:16 Ondansetron Inj 4 Mg/2 Ml Vial IV PUSH 4 mg Q4H PRN Administration Nausea And Vomiting Oxycodone/Acetaminophen 1 tablet 12/22/22 12:05 12/23/22 06:36 Oxycodone/Acetaminophen (*Crx) 5-325 Mg Tablet PO 1 tablet Q4H PRN Administration Pain Rated 4-6 Oxycodone/Acetaminophen 2 tablet 12/22/22 12:05 Oxycodone/Acetaminophen (*Crx) 5-325 Mg Tablet PO Q6H PRN Pain Rated 7-10 Polyethylene Glycol 17 gm 12/22/22 12:05 12/23/22 08:55 Polyethylene Glycol 3350 17 Gm Powd.Pack PO 17 gm QAM [facility] Administration Senna/Docusate Sodium 2 tab 12/22/22 12:05 12/23/22 08:56 Senna/Docusate Sodium Tablet PO 2 tab BID SUNNI Administration Radiology Results: ITS Impressions Knee X-Ray 12/22/22 10:39 Impression: Status post total knee replacement, without evidence of hardware complication. Labs Labs: Laboratory Results - last 24 hr 12/23/22 07:03 WBC 13.6 H RBC 3.80 L Hgb 11.1 L D Hct 34.8 L MCV 91.6 MCH 29.2 MCHC 31.9 L RDW 13.7 Plt Count 225 MPV 10.3 Immature Gran % (Auto) 0.5 Neut % (Auto) 75.3 H Lymph % (Auto) 14.8 L [place] % (Auto) 9.2 H Eos % (Auto) 0.0 Baso % (Auto) 0.2 Lymph # (Auto) 2.01 [place] # (Auto) 1.3 H Eos # (Auto) 0.0 Baso # (Auto) 0.0 Abs Immat Gran (auto) 0.07 H Absolute Neuts (auto) 10.2 H Absolute Nucleated RBC 0.0 Nucleated RBC % 0.0 Sodium 1
[2022-12-23] MEDS: ACETAMINOPHEN 500 MG TABLET 1000 MG PO (17:42)
[2022-12-24 03:34] VITALS: BP 110/55; PULSE 83
[2022-12-24] MEDS: ACETAMINOPHEN 500 MG TABLET 1000 MG PO (03:43)
[2022-12-24 03:59] VITALS: BP 121/55; PULSE 85; RESP 16; TEMP 36.6; O2SAT 98
[2022-12-24] MEDS: ONDANSETRON INJ 4 MG/2 ML VIAL IV PUSH (06:09)
--- NOTE | 2022-12-24 09:01 | PM.PNORT ---
Progress Note: A&P Assessment and Plan (1) S/P total knee arthroplasty: Qualifiers: Laterality: left Qualified Code(s): Z96.652 - Presence of left artificial knee joint Code(s): Z96.659 - Presence of unspecified artificial knee joint Status: Acute Assessment and Plan: POD #2 : Left TKA Continue PT/OT. WBAT. Walker. HIGH FALL RISK. Continue pain control. Ice Knee. Protect skin. DVT prophylaxis with Aspirin. Zofran for postoperative nausea. Monitor vitals, BP. SCDs. Incentive Spirometry Use reviewed. Monitor Dressing. Change prior to discharge. Bowel Regimen. Dispo: Home with Home Health pending progress with PT/OT Plan Reviewed postoperative assessment, labs, and vitals with attending MD, Dr. Barnhart. Agrees with current plan as indicated above. No further recommendations. Subjective Subjective Date/Time Seen: 12/24/22 09:01 Post Op day: 2 Interval history: POD #2: Left TKA Slow progress with PT/OT on POD #1 due to nerve block. Pain well controlled overall. Concerned about low BP but is asymptomatic today. Still with nausea, well controlled with Zofran. Hopeful for d/c today if improvement with PT/OT. Review of Systems Review of Systems: All systems reviewed & are unremarkable except as noted in HPI and below Constitutional: Constitutional: Denies fever(s) and Denies headache(s) ENT: Denies headache(s) Cardiovascular: Cardiovascular: Denies chest pain, Denies diaphoresis, Denies palpitations and Denies dyspnea Respiratory: Respiratory: Denies dyspnea Gastrointestinal: Gastrointestinal: Denies abdominal pain, Denies constipation, Denies nausea and Denies vomiting Genitourinary: Genitourinary: Reports nocturia and Denies dysuria Musculoskeletal: Musculoskeletal: Reports arthralgias (Left Knee ), Reports joint swelling (Left Knee ) and Reports limited range of motion (ROM limited due to recent surgical intervention LEFT Knee ) Neurologic: Denies headache(s) Endocrine: Endocrine: Denies palpitations Exam Const: General: comfortable and no acute distress Resp: Effort & Inspection: normal respiratory effort Cardio: Rate: regular rate Rhythm: regular rhythm GI: GI Palp: Yes Soft to palpation, No Tenderness to palpation present (GI) and No Guarding due to palpation present (GI) Skin: General skin exam: wounds noted (see extremity assessment ) Wounds: wounds noted (see extremity assessment ) Neuro: Cognition (Neuro): normal cognition Other: NV intact aside from block. Moves toes. Sensation intact to light touch. +ankle dorsiflexion/plantarflexion. Extrem: Left lower extremity: normal to inspection, normal capillary refill, knee Details: tenderness (diffuse ) Location: of the patella, swelling (moderate consistent to recent surgery ), abnormal ROM (limited due to recent surgery ) Details: pain with active ROM and pain with passive ROM and ecchymosis (as expected with recent surgery. NO hematoma. ), lower leg (Negative Zack's Sign ), ankle (+ankle dorsiflexion/plantarflexion ) Details: normal to inspection, no edema and normal ROM; no tenderness and no swelling and foot Details: normal capillary refill, toes with normal ROM, vascular exam Details: dorsalis pedis pulse present and motor-sensory exam light-touch normal; no tenderness Other: Incision left TKA dressing c/d/i. No hematoma. No signs of infection. No wound dehiscence. Psych: Mental Status: mental status grossly normal Objective Data Vital Signs Vital Signs: Vital Signs - 24 hr 12/23/22 09:50 12/23/22 13:50 12/23/22 17:42 Temperature 36.5 C 36.3 C L 37.9 C H Pulse Rate 79 99 Respiratory Rate 14 14 Blood Pressure 114/49 L 125/57 L Pulse Oximetry 97 99 12/23/22 18:42 12/23/22 20:10 12/23/22 23:19 Temperature 36.9 C 36.7 C 36.4 C Pulse Rate 87 74 Respiratory Rate 16 16 Blood Pressure 112/51 L 106/55 L Pulse Oximetry 97 97 12/24/22 03:34 12/24/22 03:59 Temperature 3
[2022-12-24] MEDS: CALCIUM CARBONATE (OSCAL) 500 MG TABLET PO (09:16)
[2022-12-24] MEDS: FAMOTIDINE 20 MG TABLET PO (09:16)
[2022-12-24] MEDS: ATORVASTATIN 10 MG TABLET PO (09:16)
[2022-12-24] MEDS: ASPIRIN 325 MG ENTERIC TABLET PO (09:16)
[2022-12-24] MEDS: oxyCODONE/ACETAMINOPHEN (*CRX) 5-325 MG TABLET 1 TABLET PO (09:20)
[2022-12-24 14:00] VITALS: BP 141/68; PULSE 105; RESP 14; TEMP 36.2; O2SAT 98
--- NOTE | 2022-12-24 15:00 | PM.DS ---
DS: Admitting Diagnosis Discharge Date 12/24/22 Admitting Diagnosis Left Knee DJD DS: Discharge Diagnosis Discharge Diagnosis (1) S/P total knee arthroplasty: Qualifiers: Laterality: left Qualified Code(s): Z96.652 - Presence of left artificial knee joint Code(s): Z96.659 - Presence of unspecified artificial knee joint Status: Acute Assessment and Plan: POD #2 : Left TKA Continue PT/OT. WBAT. Walker. HIGH FALL RISK. Continue pain control. Ice Knee. Protect skin. DVT prophylaxis with Aspirin. Zofran for postoperative nausea. Monitor vitals, BP. SCDs. Incentive Spirometry Use reviewed. Monitor Dressing. Change prior to discharge. Bowel Regimen. Dispo: Home with Home Health pending progress with PT/OT Plan Reviewed postoperative assessment, labs, and vitals with attending MD, Dr. Barnhart. Agrees with current plan as indicated above. No further recommendations. DS: Summary Hospital Course Reason for hospitalization: Left TKA Hospital Course: 72 year old female admitted s/p Left TKA for postoperative medical management, pain control and mobilization with PT/OT. Patient progressed well with PT/OT. Pain and vitals remained stable throughout. The patient has been cleared to be discharged home with home health at this time. All discharge care instructions reviewed at depth. New medications reviewed. Follow up planned for 3 weeks in the outpatient orthopedic clinic with Dr. Barnhart. Status at Discharge Functional status at discharge: uses cane/walker Overall status at discharge: patient is progressing back to baseline Time Spent with Patient Time attestation: Total time spent providing and/or coordinating discharge services: Exam Const: General: comfortable and no acute distress Resp: Effort & Inspection: normal respiratory effort Cardio: Rate: regular rate Rhythm: regular rhythm Skin: General skin exam: wounds noted (see extremity assessment ) Wounds: wounds noted (see extremity assessment ) Neuro: Cognition (Neuro): normal cognition Other: NV intact. Moves toes. Sensation intact to light touch. +ankle dorsiflexion/plantarflexion. Extrem: Left lower extremity: normal to inspection, normal capillary refill, knee Details: tenderness (diffuse ) Location: of the patella, swelling (moderate consistent to recent surgery ), abnormal ROM (limited due to recent surgery ) Details: pain with active ROM and pain with passive ROM and ecchymosis (as expected with recent surgery. NO hematoma. ), lower leg (Negative Zack's Sign ), ankle (+ankle dorsiflexion/plantarflexion ) Details: normal to inspection, no edema and normal ROM; no tenderness and no swelling and foot Details: normal capillary refill, toes with normal ROM, vascular exam Details: dorsalis pedis pulse present and motor-sensory exam light-touch normal; no tenderness Other: Incision left TKA dressing c/d/i. No hematoma. No signs of infection. No wound dehiscence. Psych: Mental Status: mental status grossly normal Discharge Plan Discharge Attending physician on discharge: Dony Barnhart Discharging Clinician: Lorenza Hudson Anticipated Discharge Date/Time: 12/24/22 15:00 Patient Disposition: Home Health Service Activity: may shower, no driving and follow weight bearing status Diet: as tolerated Wound Care Instructions: follow printed instructions Discharge Instructions: Post Op Total Knee Replacement Instructions Dr. Dony Barnhart [phone] Your dressing will be changed prior to your discharge. You will be sent home with one additional dressing to be changed on post op day 7 by the home health RN. Your ember will be removed on the 14th day after surgery and steri-strips will be placed. Please practice good hand hygiene and do not touch your incision in order to prevent infection. You may shower with your dressing but do not submerge in a bath tub. Do not drive or operate machinery until you
== END 2022-12-24 15:13 | disposition home health service (06) ==
LOC: ANHSURGERY 06:16 → ANH3MEDSUR 13:12 → ANHSURGERY 12-25 08:43
PROVIDERS: PCP Internal Medicine; Visit Provider Orthopaedic Surgery
PROC: (CPT 27447; principal; 2022-12-22 07:30)
DX: M17.12 Unilateral primary osteoarthritis, left knee (principal); G89.18 Other acute postprocedural pain; E78.5 Hyperlipidemia, unspecified; I34.1 Nonrheumatic mitral (valve) prolapse; E66.9 Obesity, unspecified; Z68.30 Body mass index [BMI] 30.0-30.9, adult
CPT/HCPCS: 27447; 64447; 36415; 73560; 80048; 85025; 86850; 86900; 86901; 97110; 97116; 97161; 97165; 97530; 97535; A9270; C1713; C1776; G0378; G0379; J0171; J0690; J1100; J1170; J1200; J1885; J2270; J2405; J2704; J2795; J3010; J7120